=== PATIENT | female | born 1955 | race Hispanic/Latino ===

== ENCOUNTER 2017-03-31 06:32 | Day surgery (SDC) | payer MEDICARE ==
[2017-03-31 07:26] LABS: Basophils % (Auto) 0.7 % (0.0-1.8); Eosinophils % (Auto) 3.7 % (0.0-4.3); Hematocrit 43.9 % (30.3-42.9); Hemoglobin 14.6 gm/dl (10.1-14.3); Mean Corpuscular HGB Conc 33 % (30-34); Mean Corpuscular Hemoglobin 29 pg (28-32); Mean Corpuscular Volume 87 fl (79-97); Platelet Count 286 K/mm3 (140-440); Red Blood Count 5.03 M/mm3 (3.65-5.03); White Blood Count 8.2 K/mm3 (4.5-11.0)
[2017-03-31 07:37] LABS: INR 0.9 (0.87-1.13)
[2017-03-31 07:48] LABS: Anion Gap 19 mmol/L; Blood Urea Nitrogen 11 mg/dL (7-17); Calcium 8.7 mg/dL (8.4-10.2); Carbon Dioxide 25 mmol/L (22-30); Chloride 101.3 mmol/L (98-107); Glucose 131 mg/dL (65-100); Potassium 4.1 mmol/L (3.6-5.0); Sodium 141 mmol/L (137-145)
[2017-03-31] MEDS ORDERED: NACL 0.9% 500 ML 500 ML IV SCH (08:00)
[2017-03-31] MEDS ORDERED: HEPARIN 10,000 UNITS/10 ML ONE ×2 (08:54→09:58)
[2017-03-31] MEDS ORDERED: CALAN ONE (08:54)
[2017-03-31] MEDS ORDERED: HEPARIN/NS 5000 UNIT/500ML(CATH LAB) 500 ML IR ONE (08:54)
[2017-03-31] MEDS ORDERED: XYLOCAINE 2% INFILTRATI ONE ×2 (08:55→09:58)
[2017-03-31] MEDS ORDERED: NITROGLYCERIN SYRINGE 0 ML ONE (08:55)
[2017-03-31] MEDS ORDERED: HEPARIN/NS 5000 UNIT/500ML(CATH LAB) 1,000 ML IR ONE (09:58)
[2017-03-31] MEDS ORDERED: NITROGLYCERIN SYRINGE 3 ML ONE (09:58)
[2017-03-31] MEDS ORDERED: NACL 0.9% 1000 ML 1,000 ML IV SCH (10:00)
[2017-03-31] MEDS: SUBLIMAZE ONE ×2 (10:20→10:23)
[2017-03-31] MEDS: VERSED ONE ×2 (10:20→10:23)
--- NOTE | 2017-03-31 13:20 | Discharge Summary ---
Short Stay Discharge Plan Diet: low fat, low cholesterol, low salt Special Instructions: other (Post cardiac cath instructions.) Follow up with: CLIFFORD HASSAN MD [Primary Care Provider] - 7 Days Forms: CardCath PCI D/C Instructions
[2017-03-31 13:33] VITALS: BP 153/47
--- NOTE | 2017-03-31 23:39 | Cardiac Catherization Report ---
CARDIAC CATHETERIZATION REASON FOR TEST: Chest pain and abnormal thallium stress test. PROCEDURE: The patient was prepped and draped in the sterile fashion after informed consent. Right femoral artery was entered using Seldinger technique followed by placement of a 6-[place] sheath. Selective left and right coronary angiography was performed using #4 right and left Debbie catheters. A pigtail catheter was used for left ventricle angiography. FINDINGS: HEMODYNAMICS: Left ventricle end diastolic pressure was 14, following coronary angiography. Ascending aortic pressure was 167/75. There was no significant pressure gradient on pullback across the aortic valve. CORONARY ANGIOGRAPHY: There was mild diffuse calcification of the root and ascending aorta. The left main coronary artery was free of significant disease. The left anterior descending artery and its diagonal branches contained mild luminal irregularities. The circumflex artery and its obtuse marginal branches were angiographically normal. The right coronary artery was dominant. This vessel contained mild luminal irregularities in its mid segment. There was normal left ventricular systolic function, ejection fraction 60%. CONCLUSION: 1. Mild irregularities as above, no significant coronary artery disease noted. 2. Normal left ventricular systolic function, ejection fraction 60%. RECOMMENDATION: Risk factor modification and medical therapy. JOB# [id number] CA/NTS
== END 2017-03-31 14:40 | disposition home or self-care (01) ==
LOC: CATHLABREC 06:32
PROVIDERS: ATTEND Internal Medicine Cardiovascular Disease
DX: R94.39 Abnormal result of other cardiovascular function study (principal); R07.89 Other chest pain; F17.210 Nicotine dependence, cigarettes, uncomplicated; F10.21 Alcohol dependence, in remission; M15.9 Polyosteoarthritis, unspecified; J45.909 Unspecified asthma, uncomplicated; I10 Essential (primary) hypertension; H40.9 Unspecified glaucoma; Z88.0 Allergy status to penicillin; Z79.899 Other long term (current) drug therapy; Z79.82 Long term (current) use of aspirin; Z90.710 Acquired absence of both cervix and uterus; Z86.73 Personal history of transient ischemic attack (TIA), and cerebral infarction without residual deficits; Z98.890 Other specified postprocedural states
CPT/HCPCS: 36415; 80048; 85025; 85610; 85730; 93005; 93010; 93458; C1760; C1894; J1644; J2250; J3010; J7040; Q9967